=== PATIENT | female | born 1970 | race Caucasian/White ===

== ENCOUNTER → 2019-05-09 | Outpatient (CLI) | payer OTHER ==
--- NOTE | 2019-05-09 22:36 | MR ---
EXAMINATION TYPE: MR shoulder RT wo con DATE OF EXAM: 05/09/2019 COMPARISON: Outside right shoulder x-ray January 25, 2019 HISTORY: Pain in right shoulder per order. Pain with difficulty raising overhead for 5 years per pat ent. TECHNIQUE: Multiplanar, multisequence imaging of the right shoulder is performed without contrast. FINDINGS: Rotator Cuff: Distal supraspinatus and infraspinatus tendons are intact with some increased signal in volving posterior one third of the supraspinatus tendon near articular surface. No tear is evident. S ubscapularis tendon is intact. Rotator cuff muscle bulk is preserved. Acromioclavicular Joint: Moderate narrowing with mild to moderate capsular hypertrophy. Loss of under lying fat plane. Type II downsloping acromion also causing underlying impingement coronal image 13. Glenohumeral Joint: Mild to moderate narrowing with small effusion. No significant spurring. Labrum: The labrum appears grossly intact given limitation of non-arthrogram study. Biceps Tendon: The long head of biceps is in normal location within bicipital groove. Bone marrow signal: No focal abnormal marrow signal is appreciated. Other: No additional significant abnormality is appreciated. IMPRESSION: Type II downsloping acromion along with mild to moderate degenerative changes acromioclav icular joint appear to be causing underlying impingement along with some tendinosis distal aspect of supraspinatus tendon.
== END | disposition home or self-care (01) ==
LOC: RADMRIMAIN 15:42
PROVIDERS: ATTEND Orthopaedic Surgery
DX: M19.011 Primary osteoarthritis, right shoulder (principal)

== ENCOUNTER → 2019-06-06 | Outpatient (CLI) | payer OTHER ==
[2019-06-06 16:43] LABS: Basophils # (A) 0.1 k/uL (0-0.2); Basophils % (A) 1 %; Eosinophils # (A) 0.1 k/uL (0-0.7); Eosinophils % (A) 1 %; HGB 14.6 gm/dL (11.4-16.0); Lymphocytes # (A) 1.9 k/uL (1.0-4.8); Lymphocytes % (A) 32 %; MCH 29.2 pg (25.0-35.0); MCHC 33.1 g/dL (31.0-37.0); MCV 88.4 fL (80.0-100.0); Mean Platelet Volume 7.1; Monocytes # (A) 0.3 k/uL (0-1.0); Monocytes % (A) 5 %; Neutrophils # (A) 3.4 k/uL (1.3-7.7); Neutrophils % (A) 58 %; Platelet Count 364 k/uL (150-450); RBC 4.98 m/uL (3.80-5.40); RDW 12.9 % (11.5-15.5); WBC 5.9 k/uL (3.8-10.6)
[2019-06-06 16:51] LABS: Potassium 4.1 mmol/L (3.5-5.1)
== END | disposition home or self-care (01) ==
LOC: LABPAT 15:39
PROVIDERS: ATTEND Orthopaedic Surgery
DX: Z01.812 Encounter for preprocedural laboratory examination (principal); M75.41 Impingement syndrome of right shoulder
CPT/HCPCS: 80051; 85025

== ENCOUNTER 2019-06-15 05:53 | Day surgery (SDC) | payer OTHER ==
[2019-06-13 15:09] VITALS: BMI 28.8
--- NOTE | 2019-06-14 13:20 | HP ---
HISTORY AND PHYSICAL Surgery is 06/15/2019. Mónica Sutton is a 49-year-old patient who is seen with progressive right shoulder pain. We discussed options for treatment. She elected to proceed with arthroscopy. Consent was obtained. PAST MEDICAL HISTORY: Hypothyroidism. PAST SURGICAL HISTORY: Breast reduction. DAILY MEDICATIONS: None. ALLERGIES: None. SOCIAL HISTORY: She denies tobacco use. PHYSICAL EXAMINATION: Physical evaluation of the right shoulder: Flexion 170, abduction 160, external rotation is 50 with pain and weakness. Tenderness along the anterior lateral acromion and rotator cuff insertion site. Impingement sign is positive at 120. Drop-arm sign is negative. Distal neurovascular exam is intact. Radiographs of the right shoulder revealed a type 2 anterior acromion as well as lateral downsloping anterior acromion. An MRI of the right shoulder revealed a type 2 acromion with impingement. IMPRESSION: 1. Right shoulder impingement with possible rotator cuff tear. 2. Right shoulder acromioclavicular joint osteoarthritis. PLAN: Right shoulder arthroscopy with subacromial decompression, possible arthroscopic rotator cuff repair, probable Miranda procedure and debridement. MMODL / IJN: [id number] /
[~2019-06-15 05:53] MED LIST: DEXAMETHASONE SOD PHOSPHATE 10 MG/ML 1 ML VIAL IV ONE; HYDROmorphone 0.5 MG/0.5 ML SYRINGE IVP PRN; LACTATED RINGERS 1,000 ML IV SCH; LIDOCAINE 1% 20 ML VIAL (10MG/ML) FOR IV START INTRADERMA PRN; MIDAZOLAM 2 MG/2 ML VIAL IV PRN; ONDANSETRON 4 MG/2 ML VIAL IVP ONE; fentaNYL (PF) 50 MCG/ML 2 ML AMP IVP PRN
[2019-06-15] MEDS ORDERED: fentaNYL (PF) 50 MCG/ML 2 ML AMP ONE (07:25)
[2019-06-15] MEDS ORDERED: LIDOCAINE 2%-EPI 1:100,000 20 ML VIAL ONE (07:25)
[2019-06-15] MEDS ORDERED: LIDOCAINE 1% INJ 10MG/ML (20 ML MDV) ONE (07:25)
[2019-06-15] MEDS ORDERED: SUCCINYLCHOLINE CHLORIDE 100 MG/5 ML SYR IV ONE (07:25)
[2019-06-15] MEDS ORDERED: ROCURONIUM BROMIDE 10 MG/ML 5 ML VIAL IV ONE (07:25)
[2019-06-15] MEDS ORDERED: NEOSTIGMINE 1 MG/ML 10 ML VIAL ONE (07:25)
[2019-06-15] MEDS ORDERED: GLYCOPYRROLATE 0.2 MG/ML 2 ML VIAL ONE (07:25)
[2019-06-15] MEDS ORDERED: ROPIVACAINE 5 MG/ML 30 ML VIAL ONE (07:25)
[2019-06-15] MEDS ORDERED: PROPOFOL 10 MG/ML 20 ML VIAL IV ONE (07:25)
[2019-06-15] MEDS ORDERED: diphenhydrAMINE 50 MG/ML 1 ML VIAL ONE (07:25)
[2019-06-15] MEDS ORDERED: LACTATED RINGERS 1,000 ML IV ONE (08:50)
--- NOTE | 2019-06-15 09:19 | P.OP ---
Date of Procedure: 06/15/19 Preoperative Diagnosis: Right shoulder impingement Postoperative Diagnosis: 1. Right shoulder rotator cuff tear 2. Right shoulder impingement 3. Right shoulder acromioclavicular joint osteoarthritis Procedure(s) Performed: 1. Right shoulder arthroscopic rotator cuff repair 2. Right shoulder arthroscopic subacromial decompression 3. Right shoulder arthroscopic Miranda procedure Implants: 2Arthrex 4.75 swivel lock anchors Anesthesia: GETA, regional (Interscalene block) Surgeon: Daniele Burton Road Mender #1: Oli Vasquez Estimated Blood Loss (ml): 8 Pathology: none sent Condition: stable Disposition: PACU Indications for Procedure: 49-year-old patient seen with progressive right shoulder pain. After having treatment options discussed, she elected to proceed with arthroscopy. Operative Findings: See description of procedure Description of Procedure: Patient underwent an interscalene block by department of anesthesia. The patient was then taken to the operative suite. The patient underwent a general anesthetic by the department of anesthesia. The patient was placed into a lateral position and secured. There was appropriate padding of the bony prominence. Right shoulder was then prepped and draped in normal sterile orthopedic fashion. We placed the extremity in 10 pounds of longitudinal traction. A posterior incision was now made for a posterior working portal site. The trocar and cannula were inserted into the glenohumeral joint. Arthroscopy was initiated. Spinal needle was now inserted anteriorly, to ascertain the anterior working portal site. An incision was now made in that area, a trocar was inserted followed by a probe. There was some mild superficial fraying of the anterior labrum. There was no significant chondromalacia. The biceps tendon appeared stable. The anchor appeared stable. The remainder labrum was stable. I debrided that mild area of fraying with a motorized shaver. Instruments now removed from glenohumeral joint. Utilizing the posterior working portal site, the trocar and cannula were inserted into the subacromial space. Arthroscopy initiated. I made an incision 2 fingerbreadths lateral to the acromion. I introduced my trocar followed by my ArthroCare ablator. I now began ablating thick subacromial bursal tissue, which exposed the undersurface of the anterior acromion. There was diminished subacromial space. There was a very prominent anterior acromion. A motorized bur was introduced and a subacromial decompression was performed. I also excised some osteophytes off the inferior aspect of the distal clavicle. The AC joint was visualized and noted to be fairly arthritic. The motorized bur was introduced in the anterior portal site and a Miranda procedure was performed without difficulty, decompressing the AC joint nicely. I turned my attention to the rotator cuff. There was a 11.5 cm rotator cuff tear along the midportion of the distal supraspinatus. I debrided the margins getting on a good stable tendon tissue. I abraded the footprint with a motorized bur. I passed 3 everted mattress sutures through good bites of rotator cuff tendon. I now placed a hole near the footprint for insertion of an anchor. All 6 limbs of suture were now passed through the eyelet of a 4.75 Arthrex swivel lock anchor. I introduced the eyelet into our pre-punch hole. Akin IVY tension on the sutures and deployed the anchor with good fixation noted.. All residual suture limbs were now clipped. Was a fairly large residual dogear posteriorly. I passed 2 Arthrex suture links through good bites of tendon there. I now repaired that utilizing one 4.75 swivel lock anchor in the standard fashion. Residual suture limbs were clipped. We had good compression of the tendon along the entire footprint. I injected 1 mL Renyte intra-articular. Instruments now removed from the portal sites. All portal sites were approximated with nylon suture. Sterile dressings were applied followed by a shoulder sling. Oli IVY assisted in this complex case. The patient was awakened, transferred to a bed, and taken to recovery in stable condition.
[2019-06-15 09:21] VITALS: TEMP 96.8
--- NOTE | 2019-06-15 09:22 | P.ANPRN ---
Procedure Note - Anesthesia - Nerve Block Performed Right Interscalene Single Time Out Performed: Yes Date of Procedure: 06/15/19 Procedure Start Time: 06:50 Procedure Stop Time: 06:55 Location of Patient: PreOp Indication: Acute Post-Operative Pain, Dx/Pain Location, Requested by Surgeon Sedation Type: Sedate with meaningful contact maintained Preparation: Sterile Prep Position: Supine Catheter: None Needle Types: Pajunk Needle Gauge: 21 Ultrasound used to visualize needle placement: Yes Ultrasound used to observe medication spread: Yes Injectate: 0.5% Ropivacaine (see comment for volume) (20 ml) Blood Aspirated: No Pain Paresthesia on Injection Noted: No Resistance on Injection: Normal Image Stored and Saved: Yes Events: Uneventful and Well Tolerated
[2019-06-15 11:13] VITALS: RESP 16
[2019-06-15 12:02] VITALS: BP 107/71; PULSE 61
== END 2019-06-15 12:33 | disposition home or self-care (01) ==
LOC: OR 05:53
PROVIDERS: ATTEND Orthopaedic Surgery
DX: M75.101 Unspecified rotator cuff tear or rupture of right shoulder, not specified as traumatic (principal); M75.41 Impingement syndrome of right shoulder; M19.011 Primary osteoarthritis, right shoulder; M24.111 Other articular cartilage disorders, right shoulder; E03.9 Hypothyroidism, unspecified; Z90.89 Acquired absence of other organs; Z98.890 Other specified postprocedural states
CPT/HCPCS: 64415; 76942; 29827; 29826; 29824; C1713 ×2; Q4212; J1200; J2710; J0690; J2001; J3010; J2795; J0330; J2704

== ENCOUNTER → 2020-04-23 | Outpatient (CLI) | payer OTHER ==
--- NOTE | 2020-04-23 10:55 | P.STRESS ---
- Stress Test Note Stress Test Results/Findings: Exam Performed: stress echo exercise Exam Date: 04/23/20 Reason for Exam: CHEST PAIN, PALPITATIONS Height: 5 ft 3 in Weight: 72.575 kg Protocol: EXERCISE STRESS ECHO Stage: IV Duration of Exercise: 9:51 Resting Heart Rate: 86 Resting Blood Pressure: 122/75 Maximum Achieved Heart Rate: 179 Maximum Achieved Blood Pressure: 181/86 85% PMHR: 145 100% PMHR: 170 METS: 11.3 Technologist Comment: Stress Test Results/Findings: This is a 50-year-old female with history of hypercholesterolemia and family history of ischemic heart disease being evaluated for symptoms of chest pain and palpitations. Stress data: Baseline EKG showed sinus rhythm with normal SC and QRS duration. Blood pressure at rest is 122/75 with pulse rate of 86. Patient walked on the Luiz protocol for 9 minutes and 51 seconds achieving a maximal heart rate of 178 with a blood pressure of about 180/86. EKGs taken during and after exercise did not reveal any changes of ischemia. Occasional PVCs were noted. Patient did not experience any chest pain. He Echo data: Her baseline echo images showed normal wall motion and thickening. Exercise echo images showed augmentation of the wall motion and thickening in all segments. Final impression: #1. Negative stress test #2. Negative stress echo.
--- NOTE | 2020-04-23 14:21 | ECHOS ---
Stress Test Results/Findings: Exam Performed: stress echo exercise Exam Date: 04/23/20 Reason for Exam: CHEST PAIN, PALPITATIONS Height: 5 ft 3 in Weight: 72.575 kg Protocol: EXERCISE STRESS ECHO Stage: IV Duration of Exercise: 9:51 Resting Heart Rate: 86 Resting Blood Pressure: 122/75 Maximum Achieved Heart Rate: 179 Maximum Achieved Blood Pressure: 181/86 85% PMHR: 145 100% PMHR: 170 METS: 11.3 Technologist Comment: Stress Test Results/Findings: This is a 50-year-old female with history of hypercholesterolemia and family history of ischemic heart disease being evaluated for symptoms of chest pain and palpitations. Stress data: Baseline EKG showed sinus rhythm with normal WA and QRS duration. Blood pressure at rest is 122/75 with pulse rate of 86. Patient walked on the Luiz protocol for 9 minutes and 51 seconds achieving a maximal heart rate of 178 with a blood pressure of about 180/86. EKGs taken during and after exercise did not reveal any changes of ischemia. Occasional PVCs were noted. Patient did not experience any chest pain. He Echo data: Her baseline echo images showed normal wall motion and thickening. Exercise echo images showed augmentation of the wall motion and thickening in all segments. Final impression: #1. Negative stress test #2. Negative stress echo. TRICE
--- NOTE | 2020-04-24 10:00 | ECHOF ---
Referral Reason:chest pain R07.9 R00.2 palpations MEASUREMENTS -------- HEIGHT: 160.0 cm WEIGHT: 73.5 kg BP: 122/75 RVIDd: 3.1 cm (< 3.3) IVSd: 1.1 cm (0.6 - 1.1) LVIDd: 3.3 cm (3.9 - 5.3) LVPWd: 1.1 cm (0.6 - 1.1) IVSs: 1.4 cm LVIDs: 2.1 cm LVPWs: 1.4 cm LAESV Index (A-L): 24.03 ml/m Ao Diam: 2.3 cm (2.0 - 3.7) AV Cusp: 2.0 cm (1.5 - 2.6) MV EXCURSION: 11.243 mm (> 18.000) MV EF SLOPE: 52 mm/s (70 - 150) EPSS: 0.5 cm MV E Isael: 0.93 m/s MV DecT: 188 ms MV A Isael: 0.88 m/s MV E/A Ratio: 1.05 RAP: 5.00 mmHg RVSP: 34.45 mmHg FINDINGS -------- Sinus rhythm. This was a technically good study. The left ventricular size is normal. There is mild concentric left ventricular hypertrophy. Overa ll left ventricular systolic function is normal with, an EF between 55 - 60 %. The diastolic fillin g pattern is normal for the age of the patient 9.12. The right ventricle is normal in size. Normal LA size by volume 22+/-6 ml/m2. The right atrial size is normal. Interatrial and interventricular septum intact. The aortic valve is trileaflet and appears structurally normal. There is no evidence of aortic regu rgitation. There is no evidence of aortic stenosis. No mitral regurgitation. Mild tricuspid regurgitation present. There is borderline pulmonary artery hypertension. The righ t ventricular systolic pressure, as measured by Doppler, is 34.45mmHg. There is no pulmonic regurgitation present. The aortic root size is normal. Normal inferior vena cava with normal inspiratory collapse consistent with estimated right atrial pre ssure of 5 mmHg. There is no pericardial effusion. CONCLUSIONS -------- 1. The left ventricular size is normal. 2. There is mild concentric left ventricular hypertrophy. 3. Overall left ventricular systolic function is normal with, an EF between 55 - 60 %. 4. The diastolic filling pattern is normal for the age of the patient 9.12 5. Mild tricuspid regurgitation present. CEMENT CRUSHER OPERATOR: Katja Smith RDCS
--- NOTE | 2020-05-03 09:31 | HM ---
48 hour Holter monitor shows sinus mechanism with occasional premature beats No sustained arrhythmias Heart rates ranged from 53-133 beats a minute average 81 beats a minute MTDD
== END | disposition home or self-care (01) ==
LOC: RADNMMAIN 09:12
PROVIDERS: ATTEND Family Medicine
DX: I07.1 Rheumatic tricuspid insufficiency (principal); R00.2 Palpitations; R07.9 Chest pain, unspecified
CPT/HCPCS: 93225; 93226; 93306; 93351

== ENCOUNTER → 2022-05-12 | Outpatient (CLI) | payer OTHER ==
--- NOTE | 2022-05-12 12:47 | MR ---
EXAMINATION TYPE: MR knee LT wo con DATE OF EXAM: 05/12/2022 COMPARISON: Outside left knee x-rays March 11, 2022 HISTORY: Left outer knee pain, painful kneecap, and swelling for 2 years. TECHNIQUE: Multiplanar, multisequence images of the knee is performed without IV contrast. FINDINGS: MEDIAL MENISCUS: Anterior truncated appearance posterior horn with abnormal signal extending to artic ular surfaces. LATERAL MENISCUS: Anterior and posterior horns are intact without tear. CRUCIATE LIGAMENTS: The posterior cruciate ligament is intact and unremarkable. Some increased signal and partial tearing of the anterior cruciate ligament. COLLATERAL LIGAMENTS: The medial collateral ligament and lateral collateral ligament complex are inta ct and unremarkable. EXTENSOR MECHANISM: Visualized quadriceps and patellar tendons are intact. EFFUSION: No significant suprapatellar joint effusion. POPLITEAL CYST: Tiny popliteal/bolaños cyst. TRICOMPARTMENT SPACES: Mild tricompartment joint space loss. Mild spurring at the patellofemoral comp artment CARTILAGE: Tricompartmental articular cartilage fairly well-preserved. BONE MARROW SIGNAL: Subchondral cystic change central tibia at the condylar level. OTHER: No additional significant abnormality is appreciated. IMPRESSION: 1. Emaciated full-thickness tear posterior horn of medial meniscus. 2. Mild tricompartment degenerative changes as detailed above. 3. Partial tearing of the anterior cruciate ligament. 4. Tiny popliteal cyst.
== END | disposition home or self-care (01) ==
LOC: RADMRIMAIN 10:52
PROVIDERS: ATTEND Orthopaedic Surgery
DX: M17.12 Unilateral primary osteoarthritis, left knee (principal); M23.322 Other meniscus derangements, posterior horn of medial meniscus, left knee; M71.22 Synovial cyst of popliteal space [Baker], left knee; R64 Cachexia

== ENCOUNTER → 2022-12-29 | Outpatient (CLI) | payer OTHER ==
--- NOTE | 2022-12-30 08:58 | CT ---
EXAMINATION TYPE: CT abdomen pelvis w con DATE OF EXAM: 12/29/2022 COMPARISON: None HISTORY: LLQ pain, bloating, fatigue CT DLP: 737.5 mGycm Automated exposure control for dose reduction was used. CONTRAST: CT scan of the abdomen pelvis is performed with IV Contrast, patient injected with 100 mL of Isovue 3 00. FINDINGS- LUNG BASES- bibasilar atelectasis LIVER/GB- low-attenuation liver suggestive of hepatic cirrhosis. 2 mm hypodensity within the right lobe liver small to characterize. PANCREAS- No gross abnormality is seen. SPLEEN- No gross abnormality is seen. ADRENALS- No gross abnormality is seen. KIDNEYS/BLADDER- no hydronephrosis nephrolithiasis or renal mass. BOWEL- small hiatal hernia. No evidence of bowel obstruction. Diverticulosis of the colon findings s uggestive of mild acute sigmoid diverticulitis. No abscess. LYMPH NODES- No greater than 1cm abdominal or pelvic lymph nodes are appreciated. OSSEOUS STRUCTURES- No significant abnormality is seen. OTHER- aorta of normal caliber. . Small tiny fat-containing periumbilical hernia. IMPRESSION- 1. Diverticulosis with findings suggestive of mild acute sigmoid diverticulitis. Follow-up to resolution to exclude underlying mucosal lesion. Report called to the patient's referrin g clinician at 8:53 AM 12/30/2022.
== END | disposition home or self-care (01) ==
LOC: RADCTMAIN 15:31
PROVIDERS: ATTEND Family Medicine
DX: K57.30 Diverticulosis of large intestine without perforation or abscess without bleeding (principal); R19.4 Change in bowel habit; R10.32 Left lower quadrant pain
CPT/HCPCS: 74177; Q9967

== ENCOUNTER → 2023-02-02 | Outpatient (CLI) | payer OTHER ==
[2023-02-02 22:27] LABS: Basophils # (A) 0.05 X 10*3/uL (0.00-0.10); Basophils % (A) 0.8 %; Eosinophils # (A) 0.07 X 10*3/uL (0.04-0.35); Eosinophils % (A) 1.2 %; HGB 14.2 d/dL (12.0-15.0); Lymphocytes # (A) 2.25 X 10*3/uL (0.90-5.00); Lymphocytes % (A) 37.9 %; MCH 29.3 pg (27.0-32.0); MCV 88.7 FL (80.0-97.0); Mean Platelet Volume 9.9 FL (9.5-12.2); Monocytes # (A) 0.37 X 10*3/uL (0.20-1.00); Monocytes % (A) 6.2 %; NRBC Per 100 WBC 0 X 10*3/uL (0.00-0.01); Neutrophils # (A) 3.17 X 10*3/uL (1.80-7.70); Neutrophils % (A) 53.6 %; Platelet Count 320 X 10*3/uL (140-440); RBC 4.85 X 10*6/uL (4.10-5.20); RDW 13.5 % (11.5-14.5); WBC 5.93 X 10*3/uL (4.50-10.00)
[2023-02-02 23:19] LABS: Hepatitis A Antibody IgM Nonreactive; Hepatitis B Core IgM Nonreactive; Hepatitis B Surface Antigen Nonreactive; Hepatitis C IgG Antibody Nonreactive
[2023-02-02 23:23] LABS: ALT 26 U/L (8-44); AST 24 U/L (13-35); Albumin 4.9 d/dL (3.8-4.9); Albumin/Globulin Ratio 1.96 Ratio (1.60-3.17); Alkaline Phosphatase 73 U/L (41-126); BUN/Creat Ratio 10.44 Ratio (12.00-20.00); Blood Urea Nitrogen 9.4 mg/dL (9.0-27.0); Calcium 10.3 mg/dL (8.7-10.3); Carbon Dioxide 23.9 mmol/L (21.6-31.8); Chloride 104 mmol/L (96-109); Globulin 2.5 d/dL (1.6-3.3); Glucose 88 mg/dL (70-110); Potassium 4.2 mmol/L (3.5-5.5); Sodium 142 mmol/L (135-145); Total Bilirubin 0.3 mg/dL (0.3-1.2); Total Protein 7.4 d/dL (6.2-8.2)
[2023-02-03 05:15] LABS: Gliadin AB IgA, Deaminated Negative (Negative); Gliadin AB IgA, Unit 0.5 U/mL; Gliadin AB IgG, Deaminated Negative (Negative); Gliadin AB IgG, Unit <0.4 U/mL
== END | disposition home or self-care (01) ==
LOC: LABWHC1 13:49
PROVIDERS: ATTEND Internal Medicine Gastroenterology
DX: K74.60 Unspecified cirrhosis of liver (principal); R19.4 Change in bowel habit
CPT/HCPCS: 36415; 80053; 80074; 82105; 83516; 85025

== ENCOUNTER → 2023-02-23 | Outpatient (CLI) | payer OTHER ==
--- NOTE | 2023-02-24 18:11 | MR ---
EXAMINATION TYPE: MR abdomen wo/w con DATE OF EXAM: 02/23/2023 5:27 PM CLINICAL INDICATION:Female, 53 years old with history of R93.2 ABNORMAL FINDINGS IMAGING OF LIVER; PH H, Abnormal CT. COMPARISON: CT scan abdomen 12/29/2022 TECHNIQUE: Multiplanar multi-sequence imaging was performed without contrast. Post contrast imaging was performed. Post IV contrast subtraction images were also submitted for review. IV Contrast: 7 cc Gadobutrol FINDINGS: LOWER CHEST: No gross irregularity. ABDOMEN Liver: No evidence for hepatic steatosis or cirrhosis. High T2 low T1 signal hepatic cysts. Gallbladder and Bile ducts: No evidence for ductal dilation, or biliary stricture or evidence of chol edocholithiasis. The gallbladder is within normal limits. Pancreas: No ductal dilation. No evidence for solid mass. Spleen: Normal for size. Adrenal glands: Unremarkable. Kidneys: No evidence for obstructive uropathy. No suspicious renal masses. Stomach and Bowel: No evidence for bowel wall thickening or evidence for obstruction.. Area of prior diverticulitis in the pelvis is not the [id number]. Peritoneum: No evidence of pneumoperitoneum or free fluid. Vasculature: No aortic aneurysm. Musculoskeletal: The osseous structures appear intact. Lymph Nodes: No gross evidence for lymphadenopathy. Abdominal wall: Unremarkable. IMPRESSION: 1. No evidence of abdominal mass. No evidence for acute abdominal process. 2. Prior diverticulitis is in the pelvis and not in the [id number] on this exam.
== END | disposition home or self-care (01) ==
LOC: RADMRIMAIN 16:23
PROVIDERS: ATTEND Internal Medicine Gastroenterology
DX: R93.2 Abnormal findings on diagnostic imaging of liver and biliary tract (principal)
CPT/HCPCS: 74183; A9585